=== PATIENT | male | born 1990 | race Caucasian/White ===

== ENCOUNTER 2017-12-29 14:54 | Emergency (ER) | payer SELFPAY ==
[2017-12-29] MEDS ORDERED: Ondansetron 4 MG/2 ML SDV IVPUSH ONE (15:10)
[2017-12-29] MEDS ORDERED: Sodium Chloride 0.9% 10 ML Syringe FLUSH PRN (15:11)
[2017-12-29] MEDS ORDERED: Pantoprazole 40 MG Vial IVPUSH ONE (15:12)
[2017-12-29] MEDS ORDERED: Lactated Ringers 1,000 ML IV SCH (15:15)
--- NOTE | 2017-12-29 15:38 | EDM.PDOC ---
ED HPI GENERAL MEDICAL PROBLEM - General Chief Complaint: Abdominal Pain Stated Complaint: ABDOMINAL PAIN Time Seen by Provider: 12/29/17 14:55 Source of Information: Reports: Patient History Limitations: Reports: No Limitations - History of Present Illness INITIAL COMMENTS - FREE TEXT/NARRATIVE: Pt. presents of ER with diffuse abd. discomfort for over a week. Denies any fever or chills. States that he has had several dark, tarry stools. +nausea, vomiting, and diarrhea. No chest pain or shortness of breath. No weakness. Onset: Today Location: Reports: Abdomen Abdomen Pain Score (Numeric/FACES): 8 - Related Data Allergies Allergy/AdvReac Type Severity Reaction Status Date / Time ketorolac [From Toradol] Allergy Other Verified 12/29/17 15:07 naproxen Allergy Cannot Verified 12/29/17 17:03 Remember tramadol Allergy Other Verified 12/29/17 15:06 trazodone Allergy Cannot Verified 12/29/17 17:03 Remember Home Meds: Home Meds Amitriptyline HCl 75 mg DAILY 12/29/17 [History] Sertraline [Zoloft] 100 mg DAILY 12/29/17 [History] ED ROS GENERAL - Review of Systems Review Of Systems: See Below Constitutional: Reports: No Symptoms HEENT: Reports: No Symptoms Respiratory: Reports: No Symptoms Cardiovascular: Reports: No Symptoms GI/Abdominal: Reports: Abdominal Pain, Black Stool, Diarrhea, Melena, Nausea, Vomiting : Reports: No Symptoms Musculoskeletal: Reports: No Symptoms Skin: Reports: No Symptoms Neurological: Reports: No Symptoms Psychiatric: Reports: No Symptoms ED EXAM, GENERAL - Physical Exam Exam: See Below Exam Limited By: No Limitations General Appearance: Alert, WD/WN Nose: Normal Inspection, Normal Mucosa, No Blood Throat/Mouth: Normal Inspection, Normal Lips, Normal Teeth, Normal Gums, Normal Oropharynx, Normal Voice, No Airway Compromise Head: Atraumatic, Normocephalic Neck: Normal Inspection, Supple, Non-Tender, Full Range of Motion Respiratory/Chest: No Respiratory Distress, Lungs Clear, Normal Breath Sounds, No Accessory Muscle Use, Chest Non-Tender Cardiovascular: Normal Peripheral Pulses, Regular Rate, Rhythm, No Edema, No Gallop, No JVD, No Murmur, No Rub GI/Abdominal: Normal Bowel Sounds, Soft, No Organomegaly, No Distention, No Abnormal Bruit, No Mass, Tender (Male) Exam: Deferred Rectal (Males) Exam: Normal Exam, Normal Rectal Tone, Heme - Stool Course - Vital Signs Last Recorded V/S: Last Vital Signs Temp 37.4 C 12/29/17 14:55 Pulse 83 12/29/17 14:55 Resp 18 12/29/17 14:55 BP 138/88 12/29/17 14:55 Pulse Ox - Orders/Labs/Meds Orders: Active Orders 24 hr Category Date Time Status Acute Abdominal Series [Abdomen 1V Upright] [CR] Stat Exams 12/29/17 15:48 Taken Peripheral IV Insertion Adult [OM.PC] Routine Oth 12/29/17 15:11 Ordered Labs: Laboratory Tests 12/29/17 12/29/17 12/29/17 Range/Units 15:19 15:19 15:30 WBC 8.1 (4.0-10.0) x10^3/uL RBC 5.03 (4.5-6.0) x10^6/uL Hgb 16.3 (14.0-18.0) g/dL Hct 46.8 (40.0-52.0) % MCV 93.0 (78.0-93.0) fL MCH 32.4 H (26.0-32.0) pg MCHC 34.8 (32.0-36.0) g/dL RDW Coeff of Sanjeev 12.9 (10.0-15.0) % Plt Count 156 (130-400) x10^3/uL Neut % (Auto) 73.5 (50.0-80.0) % Lymph % (Auto) 18.4 L (25.0-50.0) % [place] % (Auto) 6.7 (2.0-11.0) % Eos % (Auto) 1.2 (0.0-4.0) % Baso % (Auto) 0.2 (0.2-1.2) % Sodium 140 (136-145) mmol/L Potassium 3.9 (3.5-5.1) mmol/L Chloride 105 (98-107) mmol/L Carbon Dioxide 26 (21-32) mmol/L Anion Gap 12.9 (10-20) mmol/L BUN 10 (7-18) mg/dL Creatinine 1.0 (0.70-1.30) mg/dL Est Cr Clr Drug Dosing TNP Estimated GFR (MDRD) > 60 Glucose 83 (74-106) mg/dL Calcium 9.4 (8.5-10.1) mg/dL Corrected Calcium 9.40 (8.5-10.1) mg/dL Phosphorus 2.8 (2.6-4.7) mg/dL Magnesium 1.9 (1.8-2.4) mg/dL Total Bilirubin 0.6 (0.2-1.0) mg/dL AST 22 (15-37) U/L ALT 35 (16-63) U/L Alkaline Phosphatase 77 (46-116) U/L C-Reactive Protein < 0.2 (<=0.9) mg/dL Total Protein 7.7 (6.4-8.2) g/dL Albumin 4.0 (3.4-5.0) g/dL Globulin 3.7 Albumin/Globulin Ratio 1.08 Stool Occult Blood Negative (NEGATIVE) Meds: Medications Discontinued Medications Generic Name Dose Route Start Last Admin Trade Name Freq PRN Reason Stop Dose Admin Lactated Ringer's 1,000 mls @ 500 mls/hr 12/29/17 15:15 12/29/17 15:20 Ringers, Lactated IV 500 mls/hr ASDIRECTED LAURA Administration Ondansetron HCl 4 mg 12/29/17 15:10 12/29/17 15:21 Zofran IVPUSH 12/29/17 15:11 4 mg ONETIME ONE Administration Pantoprazole Sodium 80 mg 12/29/17 15:12 12/29/17 15:30 Protonix Iv IVPUSH 12/29/17 15:13 80 mg ONETIME ONE Administration Sodium Chloride 10 ml 12/29/17 15:11 Saline Flush FLUSH ASDIRECTED PRN Keep Vein Open Departure - Departure Time of Disposition: 16:35 Disposition: Home, Self-Care 01 Condition: Good Clinical Impression: Gastroenteritis - Discharge Information Instructions: Constipation, Adult Referrals: PCP,Not In Area [Primary Care Provider] - Forms: ED Department Discharge Additional Instructions: Home to rest. Miralax once daily. Consume 1/2 bottle of mag citrate or milk of mag to help with this. The diarrhea is probably going around the area of constipation, because there is a large area of stool in the colon. Increase intake of water. - My Orders Last 24 Hours: My Active Orders 12/29/17 15:11 Peripheral IV Insertion Adult [OM.PC] Routine 12/29/17 15:48 Acute Abdominal Series [Abdomen 1V Upright] [CR] Stat - Assessment/Plan Last 24 Hours: My Active Orders 12/29/17 15:11 Peripheral IV Insertion Adult [OM.PC] Routine 12/29/17 15:48 Acute Abdominal Series [Abdomen 1V Upright] [CR] Stat Plan: Home to rest. Miralax once daily. Consume 1/2 bottle of mag citrate or milk of mag to help with this. The diarrhea is probably going around the area of constipation, because there is a large area of stool in the colon. Increase intake of water.
[2017-12-29 15:46] LABS: CHLORIDE,CL 105 mmol/L (98-107); SODIUM,NA 140 mmol/L (136-145)
[2017-12-29 15:48] LABS: ANION GAP 12.9 mmol/L (10-20)
== END 2017-12-29 16:35 | disposition home or self-care (01) ==
LOC: VM.ED 14:54
DX: K52.9 Noninfective gastroenteritis and colitis, unspecified (principal); Z79.899 Other long term (current) drug therapy; Z88.5 Allergy status to narcotic agent; Z88.8 Allergy status to other drugs, medicaments and biological substances
CPT/HCPCS: 74018; 80053; 82274; 83735; 84100; 85025; 86140; 96361; 96374; 96375; 99284; C9113; J2405; J7120